=== PATIENT | male | born 1990 | race Caucasian/White ===

== ENCOUNTER 2017-09-16 17:04 | Emergency (ER) | payer BC, SELFPAY ==
[2017-09-16] VITALS (8 sets, daily range): BP systolic 117–146; BP diastolic 58–93; PULSE 68–90; RESP 15–20; TEMP 35.5; O2SAT 97–99; BMI 42.5
--- NOTE | 2017-09-16 17:29 | ED.RN ---
pain to left jaw yesterday didnt think much of it. this morning about 1430 this am started in chest and through left shoulder dull pain. laterpain shifted to sternal pain and more sharp. left arm tingling.
--- NOTE | 2017-09-16 17:34 | EKG12_ITS ---
Test Reason : CP Blood Pressure : / mmHG Vent. Rate : 078 BPM Atrial Rate : 078 BPM P-R Int : 166 ms QRS Dur : 096 ms QT Int : 352 ms P-R-T Axes : 057 063 004 degrees QTc Int : 401 ms Normal sinus rhythm Normal ECG Confirmed by SUNI VELAZQUEZ, VIOLETA ([id number]), index editor HENRIQUE MCCOY ([id number] on 09/20/2017 1:00:30 PM Referred By: [facility] Confirmed By:VIOLETA CULP MD
--- NOTE | 2017-09-16 17:34 | CT_ITS ---
STUDY: CTA CHEST REASON FOR EXAM: Male, 26 years old. Chest pain. Left jaw pain. RADIATION DOSAGE (If Supplied By Facility): CTDIvol = ( 12.23 ) mGy, DLP = ( 725.55 ) mGycm TECHNIQUE: The examination was performed with the intravenous administration of 100 ml of Isovue 370 contrast material. Post-processing of the angiographic images was performed, with multiplanar reformation and 3D reconstruction. Individualized dose optimization techniques were used for this CT. COMPARISON: Chest x-ray. FINDINGS: Normal enhancement of the main pulmonary artery and right and left pulmonary arteries. Normal enhancement of the bilateral peripheral pulmonary arteries. There is no demonstrated pulmonary embolism. Normal thoracic aorta and visualized great vessels. There is no demonstrated aortic dissection. Normal heart and pericardium. Normal mediastinum. Normal hilar regions. Normal visualized trachea and bronchi. The lungs are well expanded. Normal pulmonary parenchyma. Normal pleura. Normal chest wall structures. No fracture. Partial fusion of the anterior left first and second ribs. There is degenerative change of the spine. Normal visualized upper abdomen. CT/CTA Chest W/WO Contrast IMPRESSION: Normal CTA chest examination, without a demonstrated pulmonary embolism or arterial dissection. Electronically Signed: Hernan Abebe MD at 20:11 EDT , Service support ,
--- NOTE | 2017-09-16 17:35 | RAD_ITS ---
STUDY: X-RAY CHEST REASON FOR EXAM: Male, 26 years old. Chest pain TECHNIQUE: Single AP portable view of the chest. COMPARISON: None. FINDINGS: There are monitoring devices. The lungs are clear and expanded. There is no demonstrated pleural abnormality. Normal size heart. Normal mediastinum and vandana. Normal visualized pulmonary arteries. Normal visualized aortic arch and descending thoracic aorta. Normal visualized thoracic spine. Normal visualized ribs, clavicles, and shoulders. There is no demonstrated abnormality of the visualized soft tissue structures of the upper abdomen. RAD/Chest 1 View (Portable) IMPRESSION: Normal x-ray examination of the chest. Electronically Signed: Hernan Abebe MD at 18:21 EDT , Service support ,
[2017-09-16] MEDS: Aspirin 81 MG TAB.CHEW 324 MG PO (17:51)
[2017-09-16 18:05] LABS: Absolute Lymphocyte Count 2.67 X10^3/ul (0.83-4.51); Basophil# 0.04 X10^3/uL; Basophil% 0.4 % (0-1); Eosinophil# 0.15 X10^3/uL; Eosinophils% 1.4 % (0-5); Hematocrit 43.2 % (40-54); Hemoglobin 14.4 g/dl (13.0-16.5); Lymphocyte # 2.67 X10^3/ul (4.0); Lymphocyte % 25.4 % (19-41); Mean Corp Hgb Conc 33.3 g/gl (32-36); Mean Corpuscular Hgb 28.9 pg (27.0-32.0); Mean Corpuscular Volume 86.7 fL (80-94); Mean Platelet Vol. 10.4 fl (6.2-12.0); Monocyte# 0.61 X10^3/uL; Monocyte% 5.8 % (0-10); Neutrophil # 6.98 X10^3/uL (2.7-7.7); Neutrophil % 66.5 % (47-70); Platelet Count 248 K/mm3 (150-450); RBC Distribution Width CV 13.4 % (11.6-14.6); RBC Distribution Width SD 41.2 fl (35.1-43.9); Red Blood Count 4.98 M/mm3 (4.6-6.2); White Blood Count 10.5 K/mm3 (4.4-11.0)
[2017-09-16 18:07] LABS: POSITIVE COUNT NO; POSITIVE DIFFERENTIAL NO; POSITIVE MORPHOLOGY NO
[2017-09-16 18:16] LABS: Anion Gap 7 (5-15); BUN 13 mg/dL (7-18); BUN/Creat Ratio 13.1 RATIO (10-20); Chloride 106 mmol/L (98-107); Creatinine, Serum 0.99 mg/dL (0.70-1.30); EST Glomerular Filtration Rate 97 mL/min (>60); Est Glom Filt Rate - Afr Amer 118 mL/min (>60); Estimated Creatinine Clearance 110.35 ml/min; Glucose 88 mg/dL (74-106); Potassium 3.7 mmol/L (3.5-5.1); Sodium Level 142 mmol/L (136-145)
--- NOTE | 2017-09-16 18:49 | ED.DCSUM_ITS ---
- ER Visit Summary Date of Service: 09/16/17 Chief Complaint: Chest pain History of Present Illness: The patient is a 26 M presenting with chest pain for the past 3 hours. He states it is continuous pain in the mid chest. He states it is sharp. He is a electric lift truck driver. He also has a family history of PE. No other PE/DVT risk factors. He has no coronary artery disease risk factors. He is not a smoker. He does not have a family physician. He has no other complaints. Physical Examination: Vitals are stable. Patient is afebrile. Alert no acute distress. HEENT exam is unremarkable. Neck is supple. Lungs are clear and equal bilaterally. Heart is regular rate and rhythm. Abdomen is soft nontender nondistended. Extremities are unremarkable. Skin is warm and dry. No focal neurologic deficit. Remainder of exam is unremarkable. Emergency Department Course and Treatment: Chest x-ray shows no acute process. EKG is sinus rate is 78 with no acute ischemic changes. CBC, chemistries unremarkable. Troponin is negative. Patient was given aspirin on arrival with improvement of his symptoms. He is resting comfortably on reevaluation. CTA chest was obtained and shows no evidence of PE or dissection. Repeat troponin is negative. He is feeling improved in the emergency department. He is advised to follow up with Dr. Pulido prison guard supervisor for no doc. Advised return to ED for worsening complaints. Disposition: Discharge home Impression: Atypical chest pain This note was generated with [employer] dictation software. It may contain incorrect words, spelling, and punctuation that were not noted in review of the chart prior to signing ED Disposition - Plan for ED Patient: Chief Complaint: Chest Pain Referrals: Care Physician,No Primary [Primary Care Provider] -
--- NOTE | 2017-09-16 21:51 | ED.DEP ---
ED Disposition - Plan for ED Patient: Chief Complaint: Chest Pain Instructions: ED Chest Pain Atypical Unkn Cause Referrals: Care Physician,No Primary [Primary Care Provider] - Paulino Pulido MD [NON-STAFF] -
== END 2017-09-16 22:00 | disposition home or self-care (01) ==
PROVIDERS: Emergency Provider Emergency Medicine
DX: R07.89 Other chest pain (principal)
CPT/HCPCS: 71045; 71275; 80048; 84484; 85025; 93005; 99284; Q9967; A4216

== ENCOUNTER 2018-11-17 18:31 | Emergency (ER) | payer OTHER, SELFPAY ==
[2018-11-17 18:31] VITALS: BP 150/65; PULSE 94; RESP 16; TEMP 36.8; O2SAT 97; BMI 44.4
--- NOTE | 2018-11-17 19:10 | US_ITS ---
HISTORY: ABD PAIN BELOW RIBS AND LOWER ABD - X 2 WEEKS TECHNIQUE: Transabdominal ultrasound was performed with real-time and static hickman-scale imaging. COMPARISON: None FINDINGS: # of images incl. paperwork: 121 Liver: Diffuse hepatic steatosis with mild hepatomegaly. No ductal dilation. No apparent mass. Gallbladder: Partially contracted. The gallbladder wall measures 3 mm. Negative sonographic Crain's sign. No pericholecystic fluid. No gallstones. Common Bile Duct: The common bile duct measures 4 mm. Pancreas: Unremarkable as visualized. No apparent mass or fluid collection. Much of the pancreas is obscured by bowel gas. Right Kidney: 12.3 x 5.0 x 4.5 cm. Normal renal cortex. No concerning mass. No right hydronephrosis. Aorta: Not imaged.. IVC: The IVC is patent. No ascites. US/Gallbladder IMPRESSION: No acute findings. Diffuse hepatic steatosis with mild hepatomegaly. Pancreas mostly obscured by bowel gas. at 2001 Reported and signed by: Chay Ventura MD Electronically Signed: Chay Ventura, at 20:00 EDT Tel , Service support ,
--- NOTE | 2018-11-17 19:16 | US_ITS ---
HISTORY: LT LEG SWELLING X 2 DAYS TENDER EXAMINATION: US Venous Duplex LE Unilat / Limited: TECHNIQUE: Rodrigues scale, pulse wave, and color flow Doppler imaging was performed of the lower extremity venous system. The left greater saphenous, common femoral, femoral, and popliteal veins were interrogated. COMPARISON: None FINDINGS: There is normal compression, augmentation, and signal throughout the visualized deep lower extremity veins. No mass or fluid collection. US/Venous Duplex Imag/Limited/Uni IMPRESSION: No sonographic evidence of deep venous thrombosis. at 2017 Reported and signed by: Chay Ventura MD Electronically Signed: Chay Ventura, at 20:16 EDT Tel , Service support ,
[2018-11-17] MEDS: Ondansetron 4 MG/2 ML Vial IV (19:59)
[2018-11-17] MEDS: 0.9% Normal Saline 1,000 ML 1000 ML IV (19:59)
[2018-11-17] MEDS: Morphine 2 MG/ML Syringe IV (20:00)
[2018-11-17 20:20] LABS: Absolute Lymphocyte Count 3.15 X10^3/ul (0.83-4.51); Absolute Neutrophil Count 7.7 X10^3/uL (2.0-7.7); Basophil# 0.03 X10^3/uL; Basophil% 0.3 % (0-1); Eosinophil# 0.14 X10^3/uL; Eosinophils% 1.2 % (0-5); Lymphocyte # 3.15 X10^3/ul (4.0); Lymphocyte % 26.9 % (19-41); Mean Corp Hgb Conc 33.3 g/gl (32-36); Mean Corpuscular Volume 86.9 fL (80-94); Mean Platelet Vol. 10.4 fl (6.2-12.0); Monocyte# 0.64 X10^3/uL; Monocyte% 5.5 % (0-10); Neutrophil # 7.73 X10^3/uL (2.7-7.7); Neutrophil % 65.9 % (47-70); Platelet Count 242 K/mm3 (150-450); RBC Distribution Width CV 13.7 % (11.6-14.6); RBC Distribution Width SD 43.4 fl (35.1-43.9); Red Blood Count 5.18 M/mm3 (4.6-6.2); White Blood Count 11.7 K/mm3 (4.4-11.0)
[2018-11-17 20:22] LABS: POSITIVE COUNT NO; POSITIVE DIFFERENTIAL NO; POSITIVE MORPHOLOGY NO
[2018-11-17 20:33] LABS: ALB/GLOB Ratio 1.1 RATIO (0.9-2.4); AST(SGOT) 21 U/L (15-37); Alanine Aminotransfer ALT/SGPT 48 U/L (16-61); Albumin, Serum 4.2 g/dL (3.2-5.0); Alkaline Phosphatase 132 U/L (45-117); Anion Gap 7 (5-15); BUN 16 mg/dL (7-18); Calcium,Total 9.3 mg/dL (8.5-10.1); Chloride 105 mmol/L (98-107); Creatinine, Serum 1.07 mg/dL (0.70-1.30); EST Glomerular Filtration Rate 88 mL/min (>60); Est Glom Filt Rate - Afr Amer 107 mL/min (>60); Estimated Creatinine Clearance 100.33 ml/min; Globulin 3.9 g/dL (2.2-4.2); Glucose 87 mg/dL (74-106); Lipase 119 U/L (73-393); Potassium 3.9 mmol/L (3.5-5.1); Protein, Total 8.1 g/dL (6.4-8.2); Sodium Level 140 mmol/L (136-145)
--- NOTE | 2018-11-17 20:55 | ED.VISSUMM ---
- ER Visit Summary Date of Service: 11/17/18 Chief Complaint: Abdominal pain History of Present Illness: The patient is a 28 M with epigastric and right upper quadrant abdominal pain for 2 to 3 weeks it is somewhat related to food although there is some shoulder pain at times. No fever or chills no back pain no chest pain or shortness of breath. There is no lower abdominal pain. Physical Examination: Exam reveals a comfortable appearing male in no acute distress he has clear lungs he has a regular rhythm. He has a soft abdomen with epigastric and right upper quadrant pain negative Crain's. No lower abdominal pain no guarding or rebound no flank pain. Emergency Department Course and Treatment: Patient has a normal ultrasound. 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 He has he likely has gastritis I will treat as such Disposition: Discharge stable condition Impression: Gastritis This note was generated with [employer] dictation software. It may contain incorrect words, spelling, and punctuation that were not noted in review of the chart prior to signing ED Disposition - Plan for ED Patient: Disposition: Home or Assisted Living Instructions: ED Gastritis, ED PUD Vs Gastritis Prescriptions: Omeprazole 40 mg PO DAILY #30 capsule. Referrals: Care Physician,No Primary [Primary Care Provider] -
--- NOTE | 2018-11-17 21:00 | ED.DCSUM_ITS ---
- ER Visit Summary Date of Service: 11/17/18 Chief Complaint: Abdominal pain History of Present Illness: The patient is a 28 M with epigastric and right upper quadrant abdominal pain for 2 to 3 weeks it is somewhat related to food although there is some shoulder pain at times. No fever or chills no back pain no chest pain or shortness of breath. There is no lower abdominal pain. Physical Examination: Exam reveals a comfortable appearing male in no acute distress he has clear ana gs he has a regular rhythm. He has a soft abdomen with epigastric and right upper quadrant pain negative Crain's. No lower abdominal pain no guarding or rebound no flank pain. Emergency Department Course and Treatment: Patient has a normal ultrasound. 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 He has he likely has gastritis I will treat as such Disposition: Discharge stable condition Impression: Gastritis This note was generated with [employer] dictation software. It may contain incorrect words, spelling, and punctuation that were not noted in review of the chart prior to signing ED Disposition - Plan for ED Patient: Disposition: Home or Assisted Living Instructions: ED Gastritis, ED PUD Vs Gastritis Prescriptions: Omeprazole 40 mg PO DAILY #30 capsule. Referrals: Care Physician,No Primary [Primary Care Provider] -
[2018-11-17 21:11] VITALS: BP 114/63; PULSE 87; RESP 16; O2SAT 98
--- NOTE | 2018-11-17 21:11 | ED.RN ---
PT GIVEN WRITTEN AND VERBAL DISCHARGE INSTRUCTIONS AND HOME GOING PRESCRIPTIONS. EDUCATED NOT TO DRIVE AFTER HAVING MORPHINE FOR 4-6 HOURS. PT VERBALIZES UNDERSTANDING UNDERSTANDING AND DENIES ANY FURTHER QUESTIONS. IV D/C AND COVERED WITH 2X2 GAUZE AND PAPER TAPE. PT DRESSES SELF AND AMBULATES OUT OF DEPT BY SELF.
== END 2018-11-17 21:14 | disposition home or self-care (01) ==
PROVIDERS: Emergency Provider Emergency Medicine
DX: K29.70 Gastritis, unspecified, without bleeding (principal); M79.89 Other specified soft tissue disorders
CPT/HCPCS: 76705; 80053; 83690; 85025; 93971; 96361; 96374; 96375; 99283; J7030; A4216; J2405